=== PATIENT | female | born 1975 | race Hispanic/Latino ===

== ENCOUNTER 2016-11-27 08:31 | Emergency (ER) | payer SELFPAY ==
[2016-11-27] MEDS ORDERED: methylPREDNISolone Sod Succ/PF 125 MG/2 ML VIAL ONE (10:10)
[2016-11-27] MEDS ORDERED: Water For Inject, Bacteriostat 30 ML ONE (10:11)
== END 2016-11-27 10:30 | disposition home or self-care (01) ==
LOC: ERS 08:31
DX: S60.862A Insect bite (nonvenomous) of left wrist, initial encounter (principal); I10 Essential (primary) hypertension; F32.9 Major depressive disorder, single episode, unspecified; F17.210 Nicotine dependence, cigarettes, uncomplicated; W57.XXXA Bitten or stung by nonvenomous insect and other nonvenomous arthropods, initial encounter
CPT/HCPCS: 93005; 96372; J2930

== ENCOUNTER 2017-06-06 21:07 | Emergency (ER) | payer SELFPAY ==
[2017-06-06 22:31] LABS: #Basophils 0.2 thou/uL (0.0-0.2); #Eosinphils 0.4 thou/uL (0.0-0.7); #Lymphocytes 2.3 thou/uL (1.20-3.40); #Monocytes 0.6 thou/uL (0.11-0.59); #Neutrophils 5.7 thou/uL (1.40-6.50); %Basophils 1.7 % (0.0-1.0); %Eosinophils 4.6 % (0.0-10.0); %Lymphocytes 25.2 % (21.0-51.0); %Monocytes 6.1 % (0.0-10.0); %Neutrophils 62.4 % (42.0-75.0); Hemoglobin 13.7 g/dL (12.0-16.0); Mean Corpuscular HGB CONC 33.6 g/dL (32.0-36.0); Mean Corpuscular Hemoglobin 29.5 pg (27.0-31.0); Mean Corpuscular Volume 87.9 fl (81.0-99.0); Mean Platelet Volume 6.5 fL (7.4-10.4); Platelet Count 339 thou/uL (130-400); RBC Distribution Width 12.4 % (11.5-14.5); Red Blood Cell (RBC) Count 4.65 mill/uL (4.20-5.40); White Blood Cell (WBC) Count 9.2 thou/uL (4.8-10.8)
[2017-06-06 22:47] LABS: ALT (SGPT) 28 U/L (8-55); AST (SGOT) 27 U/L (5-34); Albumin 4.2 g/dL (3.5-5.0); Alkaline Phosphatase 81 U/L (40-150); Anion Gap 12 mmol/L (10-20); BUN (Urea Nitrogen) 12 mg/dL (7.0-18.7); Bilirubin, Total 0.3 mg/dL (0.2-1.2); Calc. Creatinine Clearance 0 mL/min (70-130); Calcium 9.3 mg/dL (7.8-10.44); Carbon Dioxide 28 mmol/L (22-29); Chloride 105 mmol/L (98-107); Estimated GFR-MDRD 83; Globulin 3.1 g/dL (2.4-3.5); Glucose 99 mg/dL (70-105); Potassium 3.9 mmol/L (3.5-5.1); Protein, Total 7.3 g/dL (6.0-8.3); Sodium 141 mmol/L (136-145)
--- NOTE | 2017-06-06 23:22 | RAD ---
PA AND LATERAL OF THE CHEST: INDICATION: Cough, congestion and weakness. IMPRESSION: No consolidation is evident. Cardiomediastinal silhouette is within normal limits. No pleural effusio n, or pneumothorax is evident. POS: [facility]
[2017-06-06 23:26] LABS: Bilirubin Negative (Negative); Blood, Urine Trace (Negative); Clarity CLEAR (Clear); Glucose, Urine (Dipstick) Negative (Negative); Leukocyte Negative (Negative); Nitrite Negative (Negative); Protein, Urine (Dipstick) Trace mg/dL (Neg-Trace)
[2017-06-06 23:30] LABS: Bacteria/HPF None Seen HPF (None Seen); Hyaline Casts/LPF 0-3 HYALINE CAST LPF (0-3 Hyaline); Pathc Cast-AUWi Flag 0.14 (0-2.49); WBC/HPF 0-3 HPF (0-3)
[2017-06-06] MEDS ORDERED: Ketorolac Tromethamine 30 MG/ML VIAL ONE (23:47)
[2017-06-07] MEDS ORDERED: Dexamethasone 4 mg/ml Vial ONE (00:39)
== END 2017-06-07 01:07 | disposition home or self-care (01) ==
LOC: ERS 21:07
DX: J06.9 Acute upper respiratory infection, unspecified (principal); F17.210 Nicotine dependence, cigarettes, uncomplicated; F32.9 Major depressive disorder, single episode, unspecified
CPT/HCPCS: 36415; 71046; 80053; 81003; 81015; 85025; 87081; 87430; 94640; 96361; 96374; 96375; J1100; J1885

== ENCOUNTER 2018-04-23 13:19 | Outpatient (CLI) | payer MEDICAID ==
--- NOTE | 2018-04-24 09:00 | MMO ---
MAMMOGRAM FINDINGS: There are scattered fibroglandular densities. Benign calcifications are noted bilaterally. There are no suspicious masses, calcifications or areas of architectural distortion. IMPRESSION: FINDINGS IN BOTH BREASTS ARE BENIGN. A ROUTINE FOLLOW-UP MAMMOGRAM IN 1 YEAR IS RECOMMENDED. ACR BI-RADS Category 2 - Benign finding
== END 2018-04-23 13:20 | disposition home or self-care (01) ==
LOC: BICMAMMO 13:19
PROVIDERS: ATTEND Internal Medicine
DX: Z12.31 Encounter for screening mammogram for malignant neoplasm of breast (principal)
CPT/HCPCS: 77067

== ENCOUNTER 2018-05-20 15:04 | Emergency (ER) | payer MEDICAID, SELFPAY ==
[~2018-05-20 15:04] MED LIST: ISOVUE-370 76%-LOCM 1 ML ONE
[2018-05-20 15:34] LABS: Bilirubin Negative (Negative); Blood, Urine Trace (Negative); Clarity CLEAR (Clear); Glucose, Urine (Dipstick) Negative (Negative); Leukocyte Negative (Negative); Nitrite Negative (Negative); Protein, Urine (Dipstick) Negative (Neg-Trace); Specific Gravity, Urine 1.015 (1.002-1.036); Urobilinogen 0.2 mg/dL (0.2-1.0); pH, Urine 7.5 (5.0-9.0)
[2018-05-20 15:35] LABS: Bacteria/HPF None Seen HPF (None Seen); Hyaline Casts/LPF 0-3 HYALINE CAST LPF (0-3 Hyaline); Pregnancy Test - Urine (BHCG) Negative (Negative); Pregu Control Background? CLEAR/WHITE (CLR/WHITE); Pregu Control Bar Appear? YES (CONTROL BAR); Specific Gravity 1.015 (1.002-1.036); Squamous Epithelial 0-3 HPF (0-3); WBC/HPF None Seen HPF (0-3)
[2018-05-20 16:17] LABS: #Eosinphils 0.5 thou/uL (0.0-0.7); #Lymphocytes 2.6 thou/uL (1.20-3.40); #Monocytes 0.5 thou/uL (0.11-0.59); #Neutrophils 6.5 thou/uL (1.40-6.50); %Basophils 0.4 % (0.0-1.0); %Eosinophils 4.7 % (0.0-10.0); %Lymphocytes 25.9 % (21.0-51.0); %Monocytes 4.8 % (0.0-10.0); %Neutrophils 64.1 % (42.0-75.0); Hemoglobin 14.2 g/dL (12.0-16.0); Mean Corpuscular HGB CONC 32.8 g/dL (32.0-36.0); Mean Corpuscular Hemoglobin 29.2 pg (27.0-31.0); Mean Corpuscular Volume 89.1 fL (78.0-98.0); Platelet Count 284 thou/uL (130-400); Red Blood Cell (RBC) Count 4.87 mill/uL (4.20-5.40); White Blood Cell (WBC) Count 10.1 thou/uL (4.8-10.8)
[2018-05-20 16:41] LABS: ALT (SGPT) 16 U/L (8-55); AST (SGOT) 13 U/L (5-34); Albumin 3.7 g/dL (3.5-5.0); Alkaline Phosphatase 59 U/L (40-150); Anion Gap 10 mmol/L (10-20); BUN (Urea Nitrogen) 9 mg/dL (7.0-18.7); Bilirubin, Total 0.2 mg/dL (0.2-1.2); Calc. Creatinine Clearance 0 mL/min (70-130); Calcium 8.8 mg/dL (7.8-10.44); Carbon Dioxide 30 mmol/L (22-29); Chloride 104 mmol/L (98-107); Estimated GFR-MDRD Greater than 90; Globulin 2.3 g/dL (2.4-3.5); Glucose 87 mg/dL (70-105); Lipase 40 U/L (8-78); Potassium 4.5 mmol/L (3.5-5.1); Sodium 139 mmol/L (136-145)
--- NOTE | 2018-05-20 17:04 | ULT ---
FExam: Pelvic ultrasound HISTORY: Left lower quadrant pain, x2-3 days COMPARISON: 08/28/2010 TECHNIQUE: Transabdominal and endovaginal imaging of the pelvis is performed. FINDINGS: Uterus is identified measuring 9.8 x 5.5 x 6.2 cm. Solid echotexture mass in the myometrium measuring 2.6 x 2.0 x 3.4 cm a represent a uterine leiomyoma. Incidental nabothian cysts are noted. Suboptimal evaluation of the endometrium. Suggest endometrium measures possibly 1.5 cm suggesting thickening No free fluid Neither ovary is appreciated due to bowel gas. IMPRESSION: 1. Limited evaluation of the pelvic structures. Possible uterine leiomyoma. 2. Limited option the endometrium. If there is concern for endometrial pathology, pelvic MRI or sonoh ysterogram can be performed. 3. No evidence of a mass or fluid in the adnexa. Note, neither ovaries adequately assessed.
--- NOTE | 2018-05-20 17:22 | CT ---
FEXAM: CT abdomen and pelvis with IV contrast PROVIDED CLINICAL HISTORY: Left lower quadrant pain COMPARISON: 05/20/2018 pelvic ultrasound FINDINGS: The visualized lung bases are free of significant opacity. The liver, spleen, pancreas, kidneys and adrenal glands demonstrate an unremarkable CT appearance. Ch anges of prior cholecystectomy are seen. There is no bowel dilatation, inflammatory fat stranding, free fluid or free air apparent. The append ix appears normal. Nonspecific heterogeneous attenuation involving the uterine myometrium with areas suggesting fibroid disease. Nonspecific prominence of the uterine endometrium. The regional major vascular structures appear unremarkable. The osseous structures demonstrate no con cerning osteoblastic or osteolytic lesions. IMPRESSION: No evidence for an acute process.
== END 2018-05-20 18:05 | disposition home or self-care (01) ==
LOC: ERS 15:04
DX: R10.32 Left lower quadrant pain (principal); F17.210 Nicotine dependence, cigarettes, uncomplicated
CPT/HCPCS: 36415; 74177; 76856; 80053; 81003; 81015; 81025; 83690; 85025; 93005; Q9966

== ENCOUNTER 2018-05-23 19:06 | Emergency (ER) | payer SELFPAY ==
[2018-05-23] MEDS ORDERED: Ketorolac Tromethamine 30 MG/ML VIAL ONE (19:50)
[2018-05-23] MEDS ORDERED: diphenhydrAMINE 50 MG/ML VIAL ONE (19:50)
[2018-05-23] MEDS ORDERED: Metoclopramide HCl 10 MG/2 ML VIAL ONE (19:50)
[2018-05-23 20:46] LABS: ALT (SGPT) 13 U/L (8-55); AST (SGOT) 15 U/L (5-34); Albumin 3.7 g/dL (3.5-5.0); Alkaline Phosphatase 59 U/L (40-150); Anion Gap 9 mmol/L (10-20); BUN (Urea Nitrogen) 9 mg/dL (7.0-18.7); Bilirubin, Total 0.2 mg/dL (0.2-1.2); Calc. Creatinine Clearance 0 mL/min (70-130); Calcium 8.9 mg/dL (7.8-10.44); Carbon Dioxide 29 mmol/L (22-29); Chloride 104 mmol/L (98-107); Estimated GFR-MDRD Greater than 90; Globulin 2.5 g/dL (2.4-3.5); Glucose 91 mg/dL (70-105); Potassium 3.7 mmol/L (3.5-5.1); Protein, Total 6.2 g/dL (6.0-8.3); Sodium 138 mmol/L (136-145)
[2018-05-23 22:30] LABS: #Eosinphils 0.4 thou/uL (0.0-0.7); #Lymphocytes 2.6 thou/uL (1.20-3.40); #Monocytes 0.5 thou/uL (0.11-0.59); #Neutrophils 5.8 thou/uL (1.40-6.50); %Basophils 0.3 % (0.0-1.0); %Eosinophils 4.2 % (0.0-10.0); %Lymphocytes 27.8 % (21.0-51.0); %Monocytes 5.4 % (0.0-10.0); %Neutrophils 62.3 % (42.0-75.0); Hemoglobin 13.5 g/dL (12.0-16.0); Mean Corpuscular HGB CONC 32.8 g/dL (32.0-36.0); Mean Corpuscular Hemoglobin 28.8 pg (27.0-31.0); Mean Platelet Volume 7.2 fL (7.4-10.4); Platelet Count 276 thou/uL (130-400); RBC Distribution Width 12.8 % (11.5-14.5); Red Blood Cell (RBC) Count 4.68 mill/uL (4.20-5.40); White Blood Cell (WBC) Count 9.3 thou/uL (4.8-10.8)
== END 2018-05-23 23:09 | disposition home or self-care (01) ==
LOC: ERS 19:06
DX: G43.909 Migraine, unspecified, not intractable, without status migrainosus (principal); F32.9 Major depressive disorder, single episode, unspecified; F17.210 Nicotine dependence, cigarettes, uncomplicated
CPT/HCPCS: 36415; 80053; 85025; 96365; 96366; 96375; J1200; J1885; J2765

== ENCOUNTER 2019-03-23 18:08 | Emergency (ER) | payer SELFPAY | END 2019-03-23 19:52 | disposition home or self-care (01) | LOC: ERS 18:08 | DX: J20.9 Acute bronchitis, unspecified (principal); J30.9 Allergic rhinitis, unspecified; G43.909 Migraine, unspecified, not intractable, without status migrainosus; F17.210 Nicotine dependence, cigarettes, uncomplicated | CPT/HCPCS: 87804; 99283 ==

== ENCOUNTER 2019-07-28 11:37 | Emergency (ER) | payer OTHER, SELFPAY | END 2019-07-28 12:49 | disposition home or self-care (01) | LOC: ERS 11:37 | DX: U07.1 COVID-19 (principal); G43.909 Migraine, unspecified, not intractable, without status migrainosus; F17.210 Nicotine dependence, cigarettes, uncomplicated | CPT/HCPCS: 87635; 99282; U0003 ==

== ENCOUNTER 2019-08-02 07:03 | Emergency (ER) | payer OTHER, SELFPAY ==
[2019-08-02 07:37] LABS: #Eosinphils 0.2 thou/uL (0.0-0.7); #Lymphocytes 0.4 thou/uL (1.20-3.40); #Monocytes 0.4 thou/uL (0.11-0.59); #Neutrophils 5.1 thou/uL (1.40-6.50); %Basophils 0.6 % (0.0-1.0); %Lymphocytes 7.2 % (21.0-51.0); %Monocytes 6.1 % (0.0-10.0); %Neutrophils 83.1 % (42.0-75.0); Hemoglobin 13.6 g/dL (12.0-16.0); Mean Corpuscular HGB CONC 32.4 g/dL (32.0-36.0); Mean Corpuscular Hemoglobin 28.6 pg (27.0-31.0); Mean Corpuscular Volume 88.2 fL (78.0-98.0); Mean Platelet Volume 7.1 fL (7.4-10.4); Platelet Count 242 thou/uL (130-400); RBC Distribution Width 12.7 % (11.5-14.5); Red Blood Cell (RBC) Count 4.75 mill/uL (4.20-5.40); White Blood Cell (WBC) Count 6.1 thou/uL (4.8-10.8)
[2019-08-02 07:59] LABS: ALT (SGPT) 36 U/L (8-55); AST (SGOT) 27 U/L (5-34); Albumin 3.8 g/dL (3.5-5.0); Alkaline Phosphatase 57 U/L (40-110); Anion Gap 10 mmol/L (10-20); BUN (Urea Nitrogen) 10 mg/dL (7.0-18.7); Bilirubin, Total 0.4 mg/dL (0.2-1.2); Calc. Creatinine Clearance 0 mL/min (70-130); Calcium 8.2 mg/dL (7.8-10.44); Carbon Dioxide 23 mmol/L (22-29); Chloride 104 mmol/L (98-107); Estimated GFR-MDRD Greater than 90; Globulin 2.5 g/dL (2.4-3.5); Glucose 104 mg/dL (70-105); Potassium 3.7 mmol/L (3.5-5.1); Protein, Total 6.3 g/dL (6.0-8.3); Sodium 133 mmol/L (136-145)
[2019-08-02] MEDS ORDERED: Acetaminophen 500 MG TAB ONE (08:20)
== END 2019-08-02 09:50 | disposition home or self-care (01) ==
LOC: ERS 07:03
DX: U07.1 COVID-19 (principal); R19.7 Diarrhea, unspecified; G43.909 Migraine, unspecified, not intractable, without status migrainosus; F17.210 Nicotine dependence, cigarettes, uncomplicated
CPT/HCPCS: 80053; 85025; 96360

== ENCOUNTER 2019-11-08 07:31 | Emergency (ER) | payer OTHER, SELFPAY ==
[2019-11-08 08:35] LABS: #Eosinphils 0.3 thou/uL (0.0-0.7); #Lymphocytes 2.3 thou/uL (1.20-3.40); #Monocytes 0.5 thou/uL (0.11-0.59); #Neutrophils 4.6 thou/uL (1.40-6.50); %Basophils 0.5 % (0.0-1.0); %Eosinophils 3.8 % (0.0-10.0); %Lymphocytes 29.4 % (21.0-51.0); %Monocytes 6.4 % (0.0-10.0); %Neutrophils 59.9 % (42.0-75.0); Hemoglobin 14.8 g/dL (12.0-16.0); Mean Corpuscular HGB CONC 33.7 g/dL (32.0-36.0); Mean Corpuscular Volume 89.3 fL (78.0-98.0); Mean Platelet Volume 7.1 fL (7.4-10.4); Platelet Count 280 thou/uL (130-400); RBC Distribution Width 12.3 % (11.5-14.5); Red Blood Cell (RBC) Count 4.93 mill/uL (4.20-5.40); White Blood Cell (WBC) Count 7.8 thou/uL (4.8-10.8)
[2019-11-08 08:41] LABS: BHCG - Serum Negative (NEGATIVE); Pregs Control Background? CLEAR/WHITE (CLR/WHITE); Pregs Control Bar Appear? YES (CONTROL BAR)
[2019-11-08 08:58] LABS: ALT (SGPT) 23 U/L (8-55); AST (SGOT) 21 U/L (5-34); Albumin 4.4 g/dL (3.5-5.0); Alkaline Phosphatase 60 U/L (40-110); Anion Gap 15 mmol/L (10-20); BUN (Urea Nitrogen) 16 mg/dL (7.0-18.7); Bilirubin, Total 0.8 mg/dL (0.2-1.2); Calc. Creatinine Clearance 0 mL/min (70-130); Calcium 9.2 mg/dL (7.8-10.44); Carbon Dioxide 27 mmol/L (22-29); Chloride 103 mmol/L (98-107); Estimated GFR-MDRD 78; Globulin 3.1 g/dL (2.4-3.5); Glucose 100 mg/dL (70-105); Lipase 14 U/L (8-78); Potassium 3.5 mmol/L (3.5-5.1); Protein, Total 7.5 g/dL (6.0-8.3); Sodium 141 mmol/L (136-145)
[2019-11-08] MEDS ORDERED: Lidocaine Viscous Sol 2% 15 ml UD Cup ONE (09:05)
[2019-11-08] MEDS ORDERED: Iopamidol-370 76% 500 ML 1 ML ONE (10:16)
--- NOTE | 2019-11-08 11:26 | CT ---
ABDOMEN AND PELVIC CT SCAN WITH IV CONTRAST: HISTORY: Abdominal pain. COMPARISON: 05/20/2018. FINDINGS: Minimal oblique linear stranding in the left base, evidence for some minimal scarring. Unremarkable- appearing liver. Status post cholecystectomy. No significant ductal dilatation. The pancreas, sple en, and adrenal glands are unremarkable. Evidence for a small left renal cyst. No renal hydronephro sis or renal calculus or acute obstruction. Normal-appearing appendix. There are some borderline dilated small bowel loops with some air and fluid levels without a high-grade obstruction, nonspecif ic, possibly some focal ileus or enteritis. A 1.8 cm diameter focal area of increased attenuation wi thin the uterine fundus region, probably an intrauterine fibroid. Possible small hiatal hernia. IMPRESSION: Some borderline-size small bowel loops with air fluid levels within them, nonspecific, possibly some minimal ileus. This does not have the appearance of a significant high-grade obstruction. Other findings as above. POS: [facility]
[2019-11-08 12:13] LABS: Bacteria/HPF None Seen HPF (None Seen); Bilirubin Negative (Negative); Blood, Urine 2+ (Negative); Clarity Clear (Clear); Glucose, Urine (Dipstick) Normal (Negative); Ketone, Urine Negative (Negative); Leukocyte Negative Leu/uL (Negative); Mucous/LPF 1+ LPF (<2+); Nitrite Negative (Negative); Protein, Urine (Dipstick) 20 mg/dL (Neg-Trace); Specific Gravity, Urine 1.052 (1.002-1.036); Squamous Epithelial 0-3 HPF (0-3); Urobilinogen Normal mg/dL (Less than 2); WBC/HPF 0-3 HPF (0-3)
[2019-11-08] MEDS ORDERED: Ketorolac Tromethamine 30 MG/ML VIAL ONE (12:52)
== END 2019-11-08 13:03 | disposition home or self-care (01) ==
LOC: ERS 07:31
DX: R10.11 Right upper quadrant pain (principal); R10.31 Right lower quadrant pain; J02.9 Acute pharyngitis, unspecified; F17.210 Nicotine dependence, cigarettes, uncomplicated; F32.9 Major depressive disorder, single episode, unspecified
CPT/HCPCS: 36415; 74177; 80053; 81003; 81015; 83605; 83690; 84703; 85025; 96374; J1885

== ENCOUNTER 2019-11-17 11:03 | Observation (INO) | payer OTHER, SELFPAY ==
--- NOTE | 2019-11-17 11:27 | CT ---
CT HEAD WITHOUT IV CONTRAST COMPARISON: 01/30/2000 HISTORY: Blurred vision, headache, left-sided weakness and tingling. Level 1 stroke. TECHNIQUE: Axial CT imaging at 5 mm intervals from vertex through skull base without contrast FINDINGS: There is no evidence of an acute infarction, hemorrhage, mass effect, or midline shift. The ventricul ar system is normal in size, shape, and position. Skull base has a normal CT appearance. Mucosal thickening is seen within the bilateral frontal sinuses and ethmoidal air cells with trace mu cosal thickening in each frontal sinus. A mucus retention cyst is present in the left maxillary antrum. Mastoid air cells are clear. Osseous structures appear intact. IMPRESSION: 1. No acute intracranial abnormality demonstrated. 2. Sinus disease. 3. Above findings discussed with Dr. Stern in the emergency department on 11/17/2019 at 1123 hours.
[2019-11-17 11:32] LABS: #Eosinphils 0.3 thou/uL (0.0-0.7); #Lymphocytes 2.3 thou/uL (1.20-3.40); #Monocytes 0.5 thou/uL (0.11-0.59); #Neutrophils 4.5 thou/uL (1.40-6.50); %Basophils 0.1 % (0.0-1.0); %Eosinophils 3.6 % (0.0-10.0); %Lymphocytes 30.4 % (21.0-51.0); %Monocytes 6.4 % (0.0-10.0); %Neutrophils 59.6 % (42.0-75.0); Hemoglobin 14.9 g/dL (12.0-16.0); Mean Corpuscular Hemoglobin 29.4 pg (27.0-31.0); Mean Corpuscular Volume 91.7 fL (78.0-98.0); Mean Platelet Volume 7.2 fL (7.4-10.4); Platelet Count 298 thou/uL (130-400); RBC Distribution Width 12.3 % (11.5-14.5); Red Blood Cell (RBC) Count 5.07 mill/uL (4.20-5.40); White Blood Cell (WBC) Count 7.6 thou/uL (4.8-10.8)
[2019-11-17 11:36] LABS: INR-International Normal Ratio 0.9; PTT 35.8 sec (22.9-36.1); Prothrombin Time 12.9 sec (12.0-14.7)
[2019-11-17 11:50] LABS: ALT (SGPT) 43 U/L (8-55); AST (SGOT) 27 U/L (5-34); Albumin 4.3 g/dL (3.5-5.0); Alkaline Phosphatase 73 U/L (40-110); Anion Gap 14 mmol/L (10-20); BUN (Urea Nitrogen) 11 mg/dL (7.0-18.7); Bilirubin, Total 0.3 mg/dL (0.2-1.2); Calc. Creatinine Clearance 0 mL/min (70-130); Calcium 9.4 mg/dL (7.8-10.44); Carbon Dioxide 27 mmol/L (22-29); Chloride 104 mmol/L (98-107); Estimated GFR-MDRD Greater than 90; Globulin 3.1 g/dL (2.4-3.5); Glucose 100 mg/dL (70-105); Potassium 4.1 mmol/L (3.5-5.1); Protein, Total 7.4 g/dL (6.0-8.3); Sodium 141 mmol/L (136-145)
[2019-11-17] MEDS ORDERED: Iopamidol-370 76% 500 ML 1 ML ONE (11:54)
[2019-11-17] MEDS ORDERED: Aspirin Chewable 81 MG TAB ONE (12:25)
[2019-11-17] MEDS ORDERED: Ondansetron PF 4 MG/2 ML Vial IVP PRN (13:34)
[2019-11-17] MEDS ORDERED: HYDROcodone/Acetaminophen 5/325 mg Tablet PO PRN (13:34)
[2019-11-17] MEDS ORDERED: Acetaminophen 325 MG TAB PO PRN (13:34)
--- NOTE | 2019-11-17 14:22 | RAD ---
PORTABLE CHEST: 11/17/19 HISTORY: Left sided facial numbness, blurred vision. Heart size is borderline considering the portable technique. Mediastinal structures are unremarkable. The lungs are clear of any infiltrates. No signs of failure. IMPRESSION: No active intrathoracic disease. POS: [facility]
--- NOTE | 2019-11-17 14:23 | MRI ---
MRI of thebrain: 11/17/2019 COMPARISON:None available HISTORY:Acute stroke protocol, left-sided weakness and tingling with blurred vision and headache TECHNIQUE: Multiplanar multisequence MR imaging of thebrain without contrast Findings:The diffusion weighted imaging demonstrates no evidence for acute infarction. The axial grad ient echo imaging demonstrates no evidence for intracranial hemorrhage. There is polypoid mucosal thickening involving the alveolar recess of bilateral maxillary sinuses. Th ere is mucosal thickening involving the frontal sinuses, ethmoid air cells, and sphenoid sinuses. Arterial flow voids at the axial level of the skull base appear grossly unremarkable on the T2-weight ed imaging. Regional bone marrow signal intensity unremarkable on sagittal T1 sequence. IMPRESSION:No MR evidence of intracranial hemorrhage or acute infarction.
--- NOTE | 2019-11-17 14:59 | ULT ---
EXAM: Bilateral lower extremity venous ultrasound HISTORY: Bilateral lower extremity pain and edema COMPARISON: None TECHNIQUE: Multiplanar grayscale and color Doppler images were obtained in a bilateral lower extremit y venous ultrasound. Spectral analysis of the Doppler waveforms were performed. FINDINGS: The bilateral common femoral vein, profunda femoral veins, superficial femoral veins, and p opliteal veins are normal in appearance without visible thrombus. These vessels demonstrate normal compression, flow, and augmentation. The bilateral posterior tibial veins and greater saphenous veins are patent without evidence of throm bus. IMPRESSION: No evidence of DVT.
--- NOTE | 2019-11-17 15:21 | CT ---
CTA OF THE THORAX UTILIZING IV CONTRAST, PE PROTOCOL, AND 3D REFORMATTED IMAGIN11/17/19 INDICATION: History of dyspnea, COVID-19 and PE. COMPARISON: No CT comparisons of the chest are available. FINDINGS: No definite central or segmental pulmonary embolus is demonstrated. Heart and great vessels appear wi thin normal limits. There are areas of subsegmental volume loss involving the left lower lobe and damian gula. No confluent air space opacity or pleural effusion is evident. Gallbladder is surgically absent . The adrenal glands, pancreas and visualized abdomen is unremarkable. The visualized liver is unrema rkable appearing. No definite acute osseous abnormality is evident. There are scattered degenerative and osteoarthritic change. IMPRESSION: 1. No central or segmental pulmonary embolus demonstrated. 2. Areas of subsegmental volume loss in the lingula and left lower lobe. POS: [facility]
--- NOTE | 2019-11-17 15:51 | PDOC.HHP ---
Hospitalist HPI - History of Present Illness Facial numbness History of Present Illness: Pr is a pleasant 44 years old female, who has significant past medical history of borderline diabetes, COVID-19, who presented to ED with complaint of left side facial paresthesia. Patient reported onset of symptoms around 9 AM this morning. Symptom associated with left arm numbness. She denies any visual changes. No report of dysarthria. Patient stated that this happened when she was trying to eat, and suddenly she dropped the cup without noticed it. She had similar episode of about weeks ago. Patient stated that she had history of COVID 19 in July of 2019, self isolation with conservative mgt. Pt denies any cough or fever. She c/o mild dyspnea with exertion since COVID infection and right leg pain. Hospitalist ROS - Review of Systems Other: Complete review of systems have been assessed and discussed with the patient. N egative and positive pertinent symptoms noted in the HPI; ALL other systems are reviewed and negative. Hospitalist History - Past Medical History Endocrine: reports: Diabetes (Borderline diabetes, on lifestyle modification) Other Medical History: History of COVID-19 - Past Surgical History Past Surgical History: reports: no pertinent history - Family History Family History: reports: hypertension - Social History Smoking Status: Current every day smoker Alcohol: reports: None Drugs: reports: none Living Situation: With Family Activity level: independent ambulation - Exam General Appearance: NAD Eye: PERRL ENT: normocephalic atraumatic Neck: supple Heart: RRR Respiratory: CTAB Gastrointestinal: soft, non-tender Extremities: no cyanosis Skin: normal turgor Neurological: cranial nerve grossly intact Musculoskeletal: normal tone Psychiatric: normal affect, normal behavior, A&O x 3 Hospitalist Results - Labs Result Diagrams: 11/17/19 11:15 11/17/19 11:15 Lab results: WBC 7.6 thou/uL (4.8-10.8) 11/17/19 11:15 Hgb 14.9 g/dL (12.0-16.0) 11/17/19 11:15 Hct 46.5 % (36.0-47.0) 11/17/19 11:15 MCV 91.7 fL (78.0-98.0) 11/17/19 11:15 Plt Count 298 thou/uL (130-400) 11/17/19 11:15 Neutrophils % 59.6 % (42.0-75.0) 11/17/19 11:15 Sodium 141 mmol/L (136-145) 11/17/19 11:15 Potassium 4.1 mmol/L (3.5-5.1) 11/17/19 11:15 Chloride 104 mmol/L (98-107) 11/17/19 11:15 Carbon Dioxide 27 mmol/L (22-29) 11/17/19 11:15 BUN 11 mg/dL (7.0-18.7) 11/17/19 11:15 Creatinine 0.66 mg/dL (0.6-1.1) 11/17/19 11:15 Glucose 100 mg/dL (70-105) 11/17/19 11:15 Calcium 9.4 mg/dL (7.8-10.44) 11/17/19 11:15 Total Bilirubin 0.3 mg/dL (0.2-1.2) 11/17/19 11:15 AST 27 U/L (5-34) 11/17/19 11:15 ALT 43 U/L (8-55) 11/17/19 11:15 Alkaline Phosphatase 73 U/L (40-110) 11/17/19 11:15 Troponin I Less than 0.010 ng/mL (< 0.028) 11/17/19 11:15 Serum Total Protein 7.4 g/dL (6.0-8.3) 11/17/19 11:15 Albumin 4.3 g/dL (3.5-5.0) 11/17/19 11:15 - Radiology Interpretation CT scan - head Status: image reviewed by ri Hospitalist H&P A/P - Plan Plan: This is a pleasant 44 years female with significant past medical history of borderline diabetes, tobacco dependent disorder, COVID-19 infection in July, who presented today ED with acute onset of left facial numbness: Left facial and left upper extremity paresthesia --Symptoms suggestive of possible TIA. Initial work-up in the ED including CT head was negative for acute intracranial abnormality. Patient will be admitted to stroke unit for further work-up. --Will obtain MRI of the brain, carotid Doppler, 2D echo to assess her LV function. PT eval. --We will check fasting lipid panel, A1c, and TSH level for further risk factor modification. Dyspnea with exertion --Given her history of COVID-19 infection, will obtain CTA to rule out possible PE --Obtain 2D echo to assess her LV function. Prediabetes --Lifestyle modifications. We will check a hemoglobin A1c Tobacco dependent disorder --Patient was counseled with regard to smoking cessation. History of COVID-19 --She was treated with self-isolation, and conservative management. Left leg pain --We will obtain lower extremity venous Doppler to rule out DVT DVT prophylaxis: SCD CODE STATUS: Full code GI prophylaxis: Not indicated Disposition: Discharge home with family when medically stable.
--- NOTE | 2019-11-17 15:54 | ULT ---
Carotid arterial Doppler ultrasound: 11/17/2019 HISTORY: Stroke/TIA workup. Left-sided weakness and tingling with blurred vision and headaches TECHNIQUE: Multiplanar grayscale sonographic imaging of the arterial structures of the neck obtained with color flow and spectral analysis FINDINGS: Normal arterial waveforms and antegrade blood flow within the carotid and vertebral system bilaterally. Peak systolic velocity (centimeters per second) is as follows: Right common carotid artery 90 Right internal carotid artery 63 Right external carotid artery 45 Left common carotid artery 113 Left internal carotid artery 43 Left external carotid artery 70 ICA/CCA ratio is 0.7 on the right and 0.4 on the left. IMPRESSION: No hemodynamically significant stenosis on the basis of sonographic velocity criteria.
[2019-11-17 15:56] VITALS: BMI 39.4
[2019-11-17] MEDS ORDERED: Melatonin 3 MG TAB PO PRN (21:31)
[2019-11-17] MEDS: Senokot S 8.6-50 MG TAB PO PRN (21:59)
[2019-11-18 05:17] LABS: #Eosinphils 0.3 thou/uL (0.0-0.7); #Lymphocytes 2.1 thou/uL (1.20-3.40); #Monocytes 0.4 thou/uL (0.11-0.59); #Neutrophils 2.8 thou/uL (1.40-6.50); %Basophils 0.4 % (0.0-1.0); %Eosinophils 5.2 % (0.0-10.0); %Lymphocytes 37.3 % (21.0-51.0); %Monocytes 7.1 % (0.0-10.0); Mean Corpuscular HGB CONC 32.9 g/dL (32.0-36.0); Mean Corpuscular Hemoglobin 30.1 pg (27.0-31.0); Mean Corpuscular Volume 91.5 fL (78.0-98.0); Mean Platelet Volume 7.4 fL (7.4-10.4); Platelet Count 272 thou/uL (130-400); RBC Distribution Width 12.5 % (11.5-14.5); Red Blood Cell (RBC) Count 4.66 mill/uL (4.20-5.40); White Blood Cell (WBC) Count 5.5 thou/uL (4.8-10.8)
[2019-11-18 05:43] LABS: Anion Gap 14 mmol/L (10-20); BUN (Urea Nitrogen) 12 mg/dL (7.0-18.7); Calc. Creatinine Clearance 193 mL/min (70-130); Calcium 8.8 mg/dL (7.8-10.44); Carbon Dioxide 24 mmol/L (22-29); Cardiac Risk 3.9 (Less than 4.5); Chloride 105 mmol/L (98-107); Cholesterol 163 mg/dl (< 200 Desired); Estimated GFR-MDRD Greater than 90; Glucose 102 mg/dL (70-105); HDL Cholesterol 42 mg/dL (>60 Neg Risk); LDL Cholesterol, Calculated 96 mg/dL; Potassium 4.1 mmol/L (3.5-5.1); Sodium 139 mmol/L (136-145); Triglycerides 127 mg/dL (Less than 150)
[2019-11-18] MEDS ORDERED: Aspirin 81 mg Enteric Coated Tablet PO SCH (09:00)
[2019-11-18] MEDS: Senokot S 8.6-50 MG TAB PO PRN (09:39)
[2019-11-18 11:24] VITALS: BP 117/68; TEMP 97.9
[2019-11-18 13:14] LABS: SARS-CoV-2 MS2 Positive; SARS-CoV-2 N Gene Negative; SARS-CoV-2 S Gene Negative; SARS-CoV-2 by NAA Not Detected (NotDetected); SARS-CoV-2 orf1ab Negative
--- NOTE | 2019-11-18 15:01 | DIS ---
DATE OF ADMISSION: 11/17/2019 DATE OF DISCHARGE: 11/18/2019 PRIMARY CARE PHYSICIAN: Caryn Gomez, Nurse Practitioner DISCHARGE DIAGNOSES: 1. Left facial paresthesia, suggestive of possible transient ischemic attack. 2. Dyspnea with exertion, echo and CTA were negative. 3. Prediabetes. Hemoglobin A1c is 5. 4. History of COVID-19. 5. Tobacco-dependent disorder. CONSULTATIONS: None. PROCEDURES: None. LABORATORY DATA: CBC; WBC 5.5, hemoglobin 14.0, hematocrit 42.6, and platelet 272. INR 0.9. Chemistries; sodium 139, potassium 4.1, chloride 105, carbon dioxide 24, BUN 12, creatinine 0.65, and glucose 105. Hemoglobin A1c 5.0. ALT within normal limits. Lipid panel; total cholesterol 163. TSH 1.37. COVID PCR negative. IMAGING STUDY: Lower extremity venous Doppler was negative for DVT. Chest CTA, negative for PE. Carotid Doppler, no hemodynamically significant stenosis. Brain MRI, no evidence of intracranial hemorrhage or acute infarction. Chest x-ray, no active intrathoracic disease. Brain CT, no acute intracranial abnormalities demonstrated. HISTORY OF PRESENT ILLNESS AND BRIEF HOSPITAL COURSE: The patient is a pleasant 44-year-old female, who has significant past medical history of COVID- 19 in July of 2019, borderline diabetes, tobacco-dependent disorder, who presented to the ED with new onset of left facial paresthesia associated with left arm numbness. Given her risk factor, hospitalist was asked to admit the patient for further stroke workup. The patient was monitored on tele. There was no evidence of arrhythmia. She also complained of some dyspnea given her history of COVID-19 infection. We will check a CTA to make sure there is no evidence of PE, which came back negative. She underwent complete stroke workup including negative MRI as well as carotid Doppler was negative. Echo showed preserved EF, otherwise unremarkable. Her symptoms resolved. Her LDL was 92. Her symptoms suggest a possible TIA. For that reason, we recommend aggressive risk factor management. We counseled her with regard to smoking cessation. She will be discharged home on aspirin 81 mg, and also Lipitor, we recommend to keep her LDL less than 70. At this time, she is feeling well. Her symptom has resolved. The patient is stable to discharge home. DISPOSITION: The patient is stable to discharge home. ACTIVITY: As tolerated. DIET: Heart healthy, cardiac diet. FOLLOWUP CARE: The patient to follow up with her PCP in 1 to 2 weeks for aggressive risk factor management. PHYSICAL EXAMINATION: VITAL SIGNS: Temperature is 97.9, pulse 76, respiratory rate 17, she is saturating 99% on room air, and blood pressure 117/68. GENERAL APPEARANCE: The patient appears to be comfortable. She is not in acute distress. HEENT: Normocephalic, atraumatic. Mucous membranes moist. NECK: Supple. No lymphadenopathy. No JVD. CARDIOVASCULAR: Regular rate and rhythm. S1 and S2 noted. No murmur. PULMONOLOGY: Clear to auscultation bilaterally. ABDOMEN: Soft, nontender, and nondistended. Positive bowel sounds. MUSCULOSKELETAL: No joint pain or tenderness. No lower extremity edema. NEUROLOGIC: Cranial nerves II through XII grossly intact. No focal weakness. PSYCHIATRIC: The patient is alert and oriented x3 with normal affect. SKIN: No rash. DISCHARGE MEDICATIONS: 1. Aspirin 81 mg one tablet p.o. daily. 2. Lipitor 40 mg p.o. at bedtime. Thank you for allowing us to participate in this patient's care. Discharge time spent, 30 minutes. Job ID: [id number] MTDD
== END 2019-11-18 16:08 | disposition home or self-care (01) ==
LOC: ERS 11:03 → ERHOLD 12:26 → 2SE 15:54
PROVIDERS: ADMIT Family Medicine; ATTEND Family Medicine
DX: R20.2 Paresthesia of skin (principal); R06.09 Other forms of dyspnea; R73.03 Prediabetes; F17.210 Nicotine dependence, cigarettes, uncomplicated; F32.9 Major depressive disorder, single episode, unspecified; M79.605 Pain in left leg; Z86.19 Personal history of other infectious and parasitic diseases; Z88.0 Allergy status to penicillin
CPT/HCPCS: 36415; 36416; 70450; 70551; 71045; 71275; 80048; 80053; 80061; 83036; 84443; 84484; 85025; 85610; 85730; 86850; 86900; 86901; 87635; 93005; 93306; 93880; 93970; G0378; Q9967; U0003

== ENCOUNTER 2021-01-04 04:14 | Emergency (ER) | payer OTHER, SELFPAY ==
[2021-01-04] MEDS ORDERED: Mag-Al 1200 mg/1200 mg/30 ML UDCUP ONE (04:49)
[2021-01-04 05:13] LABS: Bacteria/HPF None Seen HPF (None Seen); Bilirubin Negative (Negative); Blood, Urine 2+ (Negative); Clarity Turbid (Clear); Glucose, Urine (Dipstick) Normal (Negative); Ketone, Urine Negative (Negative); Leukocyte Negative Leu/uL (Negative); Mucous/LPF Rare LPF (<2+); Nitrite Negative (Negative); Protein, Urine (Dipstick) 30 mg/dL (Neg-Trace); Specific Gravity, Urine 1.033 (1.002-1.036); Squamous Epithelial 21-50 HPF (0-3); Urobilinogen Normal mg/dL (Less than 2); WBC/HPF 0-3 HPF (0-3)
[2021-01-04 05:14] LABS: #Eosinphils 0.3 thou/uL (0.0-0.7); #Lymphocytes 2.7 thou/uL (1.20-3.40); #Monocytes 0.5 thou/uL (0.11-0.59); #Neutrophils 4.1 thou/uL (1.40-6.50); %Basophils 0.4 % (0.0-1.0); %Eosinophils 4.3 % (0.0-10.0); %Lymphocytes 35.1 % (21.0-51.0); %Monocytes 5.9 % (0.0-10.0); %Neutrophils 54.2 % (42.0-75.0); Hemoglobin 14.3 g/dL (12.0-16.0); Mean Corpuscular HGB CONC 32.7 g/dL (32.0-36.0); Mean Corpuscular Hemoglobin 29.7 pg (27.0-31.0); Mean Corpuscular Volume 90.9 fL (78.0-98.0); Mean Platelet Volume 6.8 fL (7.4-10.4); Platelet Count 286 thou/uL (130-400); Red Blood Cell (RBC) Count 4.81 mill/uL (4.20-5.40); White Blood Cell (WBC) Count 7.5 thou/uL (4.8-10.8)
[2021-01-04 05:31] LABS: ALT (SGPT) 28 U/L (8-55); AST (SGOT) 17 U/L (5-34); Albumin 3.7 g/dL (3.5-5.0); Alkaline Phosphatase 62 U/L (40-110); Anion Gap 11 mmol/L (10-20); BUN (Urea Nitrogen) 9 mg/dL (7.0-18.7); Bilirubin, Total 0.6 mg/dL (0.2-1.2); Calc. Creatinine Clearance 0 mL/min (70-130); Carbon Dioxide 25 mmol/L (22-29); Chloride 106 mmol/L (98-107); Globulin 2.7 g/dL (2.4-3.5); Glucose 98 mg/dL (70-105); Potassium 3.7 mmol/L (3.5-5.1); Protein, Total 6.4 g/dL (6.0-8.3); Sodium 138 mmol/L (136-145)
[2021-01-04 05:43] LABS: Pregnancy Test - Urine (BHCG) Negative (Negative); Pregu Control Background? CLEAR/WHITE (CLR/WHITE); Pregu Control Bar Appear? YES (CONTROL BAR); Specific Gravity 1.033 (1.002-1.036)
== END 2021-01-04 05:59 | disposition home or self-care (01) ==
LOC: ERS 04:14
DX: S60.221A Contusion of right hand, initial encounter (principal); R10.31 Right lower quadrant pain; Z87.891 Personal history of nicotine dependence; W18.30XA Fall on same level, unspecified, initial encounter
CPT/HCPCS: 36415; 80053; 81003; 81015; 81025; 85025

== ENCOUNTER 2021-06-29 09:58 | Outpatient (CLI) | payer MEDICAID | END 2021-06-29 09:59 | disposition home or self-care (01) | LOC: BICULT 09:58 | PROVIDERS: ATTEND Nurse Practitioner Women's Health | DX: Z12.31 Encounter for screening mammogram for malignant neoplasm of breast (principal); N95.0 Postmenopausal bleeding; N85.8 Other specified noninflammatory disorders of uterus; R93.89 Abnormal findings on diagnostic imaging of other specified body structures | CPT/HCPCS: 76856; 77067 ==